=== PATIENT | female | born 1935 ===

== ENCOUNTER 2018-07-11 16:20 | Inpatient (IN) | payer MEDICARE, BC ==
[2018-07-11 16:47] VITALS: BMI 25.6
[2018-07-11] MEDS ORDERED: SUMAtriptan Succinate 50 MG TAB PO PRN (17:27)
--- NOTE | 2018-07-11 17:44 | HP ---
She is a [facility] new admit, so I do not have a medical record number yet. CHIEF COMPLAINT: Status post right knee replacement for physical therapy. BRIEF HISTORY: This is a very pleasant 82-year-old female, who underwent elective right total knee replacement by Dr. Vazquez. She has done well postoperatively and was felt to be a candidate for inpatient rehabilitation, so she was transferred here to [place]. Currently, the patient is resting in bed and denies any complaints. She denies any chest pain or shortness of breath. She denies any fever or chills. No family at bedside. PAST MEDICAL HISTORY: 1. Gastroesophageal reflux disease. 2. Osteoarthritis. 3. Lumbar radiculopathy, status post laminectomy. 4. History of breast cancer, on Arimidex and chronic kidney disease stage 2. PAST SURGICAL HISTORY: 1. Lumbar laminectomy. 2. 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 ALLERGIES: NO KNOWN DRUG ALLERGIES. FAMILY HISTORY: Parkinson's in her brother. PSYCHOSOCIAL HISTORY: Denies any tobacco, alcohol, or recreational drug use. REVIEW OF SYSTEMS: CARDIOVASCULAR SYSTEM: Denies any chest pain, shortness of breath, palpitations, PND, orthopnea, or pedal edema. RESPIRATORY: Denies any chronic cough, expectoration, or pleuritic type chest pain. GASTROINTESTINAL: Denies any nausea, vomiting, diarrhea, constipation, hematemesis, melena, or hematochezia. GENITOURINARY: Denies any frequency, urgency, dysuria, or hematuria. CENTRAL NERVOUS SYSTEM: No focal numbness, weakness, or fainting spells. HEENT: No difficulty speech, vision, hearing, or swallowing. PHYSICAL EXAMINATION: GENERAL: A very pleasant 82-year-old female, who is resting comfortably in bed, in no apparent distress. She responds appropriate to questions. She is alert, awake, and oriented x3. No family at bedside. VITAL SIGNS: She is afebrile. Heart rate 65, respirations 18, oxygen saturation 93%, and blood pressure is 119/80. HEENT: Normocephalic and atraumatic. Pupils are equal and reactive to light and accommodation. NECK: No JVD, thyromegaly, cervical lymphadenopathy, or throat exudates. No carotid bruits. CARDIOVASCULAR: S1 and S2 plus. Rate and rhythm regular. RESPIRATORY: Normal vesicular breath sounds heard in all lung bernstein. ABDOMEN: Soft and nontender. Bowel sounds heard in all quadrants. EXTREMITIES: Without cyanosis or clubbing. Trace right leg edema. Right knee incision with dressing. CENTRAL NERVOUS SYSTEM: Awake and responsive. Cranial nerves 2 through 12 grossly intact. Motor system examination shows generalized weakness mainly due to right knee replacement. LABORATORY VALUES: Pending. IMPRESSION: 1. Osteoarthritis, status post elective right total knee replacement. 2. Gastroesophageal reflux disease. 3. Osteoarthritis. 4. Chronic kidney disease, stage 2. 5. History of lumbar radiculopathy, status post laminectomy. 6. History of right breast cancer, currently on Arimidex. PLAN: 1. Continue current medications. 2. Nutritional support. 3. Incision care. 4. Orthopedic precautions. 5. DVT prophylaxis with aspirin 81 mg b.i.d. 6. Decubitus precaution. 7. Stress ulcer prophylaxis. 8. Consult physical therapy, eval and treat. 9. Routine laboratory values in the morning. 10. Discussed with the patient and nursing in detail, and all questions were answered. Job ID: [id number]
[2018-07-11] MEDS: Aspirin Chewable 81 MG TAB PO SCH (20:47)
[2018-07-11] MEDS: Fluticasone Propionate Nasal Spray 16 gm Bottle NASAL SCH (20:47)
[2018-07-11] MEDS: traMADol HCl 50 MG TAB PO PRN (20:47)
[2018-07-11] MEDS: Anastrozole 1 MG TAB PO SCH (20:52)
[2018-07-12] MEDS: Acetaminophen 500 MG TAB PO PRN ×4 (00:58→20:54)
[2018-07-12] MEDS: traMADol HCl 50 MG TAB PO PRN ×4 (00:59→20:55)
[2018-07-12] MEDS: Melatonin 3 MG TAB PO PRN ×2 (01:01→23:32)
[2018-07-12 05:09] LABS: #Eosinphils 0.3 thou/uL (0.0-0.7); #Lymphocytes 1.2 thou/uL (1.20-3.40); #Monocytes 0.6 thou/uL (0.11-0.59); #Neutrophils 4.1 thou/uL (1.40-6.50); %Basophils 0.7 % (0.0-1.0); %Eosinophils 5.2 % (0.0-10.0); %Lymphocytes 19.6 % (21.0-51.0); %Monocytes 10.1 % (0.0-10.0); %Neutrophils 64.4 % (42.0-75.0); Hemoglobin 9.9 g/dL (12.0-16.0); Mean Corpuscular Hemoglobin 30.9 pg (27.0-31.0); Mean Corpuscular Volume 96.5 fL (78.0-98.0); Platelet Count 254 thou/uL (130-400); RBC Distribution Width 13.1 % (11.5-14.5); White Blood Cell (WBC) Count 6.3 thou/uL (4.8-10.8)
[2018-07-12 05:27] LABS: Anion Gap 12 mmol/L (10-20); BUN (Urea Nitrogen) 20 mg/dL (9.8-20.1); Calc. Creatinine Clearance 59 mL/min (70-130); Calcium 9.7 mg/dL (7.8-10.44); Carbon Dioxide 27 mmol/L (23-31); Chloride 100 mmol/L (98-107); Estimated GFR-MDRD 69; Glucose 101 mg/dL (83-110); Potassium 4.4 mmol/L (3.5-5.1); Sodium 135 mmol/L (136-145)
[2018-07-12] MEDS: Citalopram 20 MG TAB PO SCH (09:06)
[2018-07-12] MEDS: Oxybutynin 5 MG TAB PO SCH (09:07)
[2018-07-12] MEDS: Polyethylene Glycol 3350 17 GM Packet PO SCH (09:07)
[2018-07-12] MEDS: Fluticasone Propionate Nasal Spray 16 gm Bottle NASAL SCH ×2 (09:07→20:54)
[2018-07-12] MEDS ORDERED: Aspirin Chewable 81 MG TAB ONE (09:46)
[2018-07-12] MEDS: Aspirin Chewable 81 MG TAB PO SCH ×2 (09:51→20:54)
[2018-07-12] MEDS: Anastrozole 1 MG TAB PO SCH (20:54)
[2018-07-12] MEDS: Meloxicam 7.5 MG TAB PO PRN (22:48)
[2018-07-13] MEDS: Acetaminophen 500 MG TAB PO PRN ×3 (08:41→21:08)
[2018-07-13] MEDS: Aspirin Chewable 81 MG TAB PO SCH ×2 (08:41→19:51)
[2018-07-13] MEDS: Citalopram 20 MG TAB PO SCH (08:41)
[2018-07-13] MEDS: Oxybutynin 5 MG TAB PO SCH (08:42)
[2018-07-13] MEDS: Fluticasone Propionate Nasal Spray 16 gm Bottle NASAL SCH ×2 (08:42→19:51)
[2018-07-13] MEDS: Polyethylene Glycol 3350 17 GM Packet PO SCH (08:42)
[2018-07-13] MEDS: traMADol HCl 50 MG TAB PO PRN ×3 (08:42→21:07)
--- NOTE | 2018-07-13 13:54 | PRG ---
DATE OF SERVICE: 07/13/2018 SUBJECTIVE: Ms. Lyon is doing well. Denies any complaints. Resting comfortably, very happy with her progress. Pain is well controlled. Bowel and bladder are working well. No family at bedside. OBJECTIVE: VITAL SIGNS: She is afebrile, heart rate is 83, respirations 18, oxygen saturation 96% on room air, blood pressure 143/74. CARDIOVASCULAR SYSTEM: S1 and S2 plus. RESPIRATORY SYSTEM: Normal vesicular breath sounds. ABDOMEN: Soft, nontender. Bowel sounds heard in all quadrants. EXTREMITIES: Without cyanosis or clubbing. Peripheral pulses are palpable. Knee incision with dressing. Trace edema. LABORATORY DATA: White count is 6.3, H and H are 9.9 and 30.9. Sodium 135, potassium 4.4, BUN and creatinine are 20 and 0.8. IMPRESSION: 1. Osteoarthritis, status post right total knee replacement. 2. Gastroesophageal reflux disease. 3. History of lumbar radiculopathy, status post laminectomy. 4. History of breast cancer, on Arimidex. 5. Chronic kidney disease, stage II. PLAN: 1. Continue current medications. 2. Pain control. 3. Physical therapy. 4. DVT and stress ulcer prophylaxis. 5. Decubitus precautions. 6. Routine laboratory values. 7. Discussed with the patient in detail and all questions answered. 8. Renal functions normal at present. We will continue to monitor closely. Job ID: [id number]
[2018-07-13] MEDS: Anastrozole 1 MG TAB PO SCH (19:51)
[2018-07-14] MEDS: Meloxicam 7.5 MG TAB PO PRN (00:38)
[2018-07-14] MEDS: Melatonin 3 MG TAB PO PRN ×2 (00:38→21:20)
[2018-07-14] MEDS: Acetaminophen 500 MG TAB PO PRN (04:05)
[2018-07-14] MEDS: traMADol HCl 50 MG TAB PO PRN ×3 (04:05→21:16)
[2018-07-14] MEDS: Polyethylene Glycol 3350 17 GM Packet PO SCH (09:00)
[2018-07-14] MEDS: HYDROcodone/Acetaminophen 5/325 mg Tablet PO PRN ×2 (09:01→17:47)
[2018-07-14] MEDS: Fluticasone Propionate Nasal Spray 16 gm Bottle NASAL SCH ×2 (09:01→21:14)
[2018-07-14] MEDS: Aspirin Chewable 81 MG TAB PO SCH ×2 (09:01→21:14)
[2018-07-14] MEDS: Oxybutynin 5 MG TAB PO SCH (09:01)
[2018-07-14] MEDS: Citalopram 20 MG TAB PO SCH (09:01)
--- NOTE | 2018-07-14 14:01 | PRG ---
DATE OF SERVICE: 07/14/2018 SUBJECTIVE: Ms. Lyon is doing well except she was having some significant pain at night, so [place] 5/325 q.6h p.r.n. was ordered for breakthrough pain. She is doing well otherwise. She denies any concerns or questions. She is happy with her progress. No family at bedside. No GI or symptoms. OBJECTIVE: VITAL SIGNS: She is afebrile. Heart rate 78, respirations 18, oxygen saturation 97% on room air, blood pressure 134/82. CARDIOVASCULAR: S1, S2 plus. RESPIRATORY SYSTEM: Normal vesicular breath sounds. ABDOMEN: Soft, nontender. Bowel sounds heard in all quadrants. EXTREMITIES: Without cyanosis or clubbing. A knee incision with dressing. Trace edema. IMPRESSION: 1. Osteoarthritis, status post right total knee replacement. 2. Gastroesophageal reflux disease. 3. History of breast cancer, on Arimidex. 4. History of chronic kidney disease, stage 2. Currently, renal functions are normal. PLAN: 1. Continue nutritional support. 2. Continue current medications, but add the [place] 5/325 for breakthrough pain. 3. Bowel regimen. 4. DVT and stress ulcer prophylaxis. 5. Decubitus precautions. 6. Incision care. 7. Orthopedic precautions. 8. Physical therapy. 9. Routine laboratory values. 10. Discussed with the patient in detail and all questions answered. 11. Routine laboratory values. Job ID: [id number]
[2018-07-14] MEDS: Anastrozole 1 MG TAB PO SCH (21:14)
[2018-07-15] MEDS: Aspirin Chewable 81 MG TAB PO SCH ×2 (08:39→21:24)
[2018-07-15] MEDS: Oxybutynin 5 MG TAB PO SCH (08:40)
[2018-07-15] MEDS: Polyethylene Glycol 3350 17 GM Packet PO SCH (08:40)
[2018-07-15] MEDS: Citalopram 20 MG TAB PO SCH (08:40)
[2018-07-15] MEDS: HYDROcodone/Acetaminophen 5/325 mg Tablet PO PRN ×2 (08:41→16:29)
[2018-07-15] MEDS: Fluticasone Propionate Nasal Spray 16 gm Bottle NASAL SCH ×2 (08:46→21:24)
--- NOTE | 2018-07-15 12:50 | PRG ---
DATE OF SERVICE: 07/15/2018 SUBJECTIVE: Ms. Lyon is doing well. Denies any complaints. Resting comfortably, slowly improving with therapy, having occasional episodes of frustration with her perceived lack of improvement. OBJECTIVE: VITAL SIGNS: She is afebrile. Heart rate 91; respirations 18; oxygen saturation 90% on room air, on recheck, it was 94%; blood pressure 152/86. CARDIOVASCULAR: S1, S2 plus. RESPIRATORY: Normal vesicular breath sounds. ABDOMEN: Soft, nontender. Bowel sounds heard in all quadrants. EXTREMITIES: Without cyanosis or clubbing. Right knee incision with dressing. Trace edema. CENTRAL NERVOUS SYSTEM: A and O x3. Cranial nerves 2 through 12 intact. IMPRESSION: 1. Osteoarthritis, status post right total knee replacement. 2. Gastroesophageal reflux disease. 3. History of breast cancer, on Arimidex. 4. Improving deconditioning. PLAN: 1. Continue current medications. 2. Two nutritional support. 3. DVT and stress ulcer prophylaxis. 4. Decubitus precautions. 5. Incision care and orthopedic precautions. 6. Continue PT, OT. 7. Routine laboratory values. 8. Titrate Emery. 9. Bowel regimen. 10. Discussed with the patient and nursing in detail, and all questions answered. Job ID: [id number]
[2018-07-15] MEDS: traMADol HCl 50 MG TAB PO PRN (18:30)
[2018-07-15] MEDS: Anastrozole 1 MG TAB PO SCH (21:24)
[2018-07-15] MEDS: Melatonin 3 MG TAB PO PRN (21:24)
[2018-07-16] MEDS: HYDROcodone/Acetaminophen 5/325 mg Tablet PO PRN ×4 (00:22→21:24)
[2018-07-16] MEDS: Oxybutynin 5 MG TAB PO SCH (08:43)
[2018-07-16] MEDS: Aspirin Chewable 81 MG TAB PO SCH ×2 (08:43→21:23)
[2018-07-16] MEDS: Citalopram 20 MG TAB PO SCH (08:43)
[2018-07-16] MEDS: Fluticasone Propionate Nasal Spray 16 gm Bottle NASAL SCH ×2 (08:43→21:23)
[2018-07-16] MEDS: Polyethylene Glycol 3350 17 GM Packet PO SCH (08:44)
[2018-07-16] MEDS: Meloxicam 7.5 MG TAB PO PRN (11:21)
--- NOTE | 2018-07-16 14:09 | PRG ---
DATE OF SERVICE: 07/16/2018 SUBJECTIVE: Ms. Lyon states that her pain is not under control. She apparently has a spinal stimulator, but needs a unit that needs to be hooked up to it and nursing have contacted the [employer] and they are suppose to ship it here. I will also increase her hydrocodone to 10/325 q.6 p.r.n. and see if that helps with the pain. No other concerns or questions. OBJECTIVE: VITAL SIGNS: She is afebrile, heart rate 77, respirations 16, oxygen saturation 97% on room air, blood pressure 110/66. CARDIOVASCULAR SYSTEM: S1-S2 plus. RESPIRATORY SYSTEM: Normal vesicular breath sounds. ABDOMEN: Soft, nontender. Bowel sounds heard in all quadrants. EXTREMITIES: Without cyanosis or clubbing. Right knee incision with dressing. CENTRAL NERVOUS SYSTEM: A and O x3. Cranial nerves 2 through 12 intact. Improving generalized weakness. IMPRESSION: 1. Osteoarthritis, status post right total knee replacement. 2. History of chronic lumbar pain with placement of spinal stimulator. 3. Gastroesophageal reflux disease. 4. History of breast cancer. 5. Improving deconditioning. PLAN: 1. Change [place] to 10/325 q.6 p.r.n. 2. Continue tramadol q.4 p.r.n. 3. Await her getting the unit to get her spinal stimulator hooked up. 4. Nutritional support. 5. DVT and stress ulcer prophylaxis. 6. Decubitus precaution. 7. Incision care. 8. Orthopedic precautions. 9. Routine laboratory values. 10. Discussed with the patient in detail and all questions answered. Job ID: [id number]
[2018-07-16] MEDS: Melatonin 3 MG TAB PO PRN (21:24)
[2018-07-16] MEDS: Anastrozole 1 MG TAB PO SCH (21:24)
[2018-07-17] MEDS: HYDROcodone/Acetaminophen 5/325 mg Tablet PO PRN ×4 (04:08→23:02)
[2018-07-17] MEDS: Aspirin Chewable 81 MG TAB PO SCH ×2 (09:03→20:47)
[2018-07-17] MEDS: Citalopram 20 MG TAB PO SCH (09:03)
[2018-07-17] MEDS: Fluticasone Propionate Nasal Spray 16 gm Bottle NASAL SCH ×2 (09:03→20:51)
[2018-07-17] MEDS: Oxybutynin 5 MG TAB PO SCH (09:03)
[2018-07-17] MEDS: Polyethylene Glycol 3350 17 GM Packet PO SCH (09:04)
--- NOTE | 2018-07-17 10:32 | PRG ---
DATE OF SERVICE: 07/17/2018 SUBJECTIVE: Ms. Lyon is doing well except for pain in her right knee and her back. The increase in the hydrocodone is helping some, but it is not relieving the pain. She is not taking her tramadol and I advised her to take the tramadol in between and see if that helps. She is also waiting on the control unit for her spinal stimulator, so she can start using it for her back. No fever or chills. No chest pain or shortness of breath. No other concerns or questions. She is also wondering, if her son from [place] can participate in case conference and I explained to her that it should not be a problem and I have informed the . OBJECTIVE: VITAL SIGNS: She is afebrile, heart rate 81, respirations 18, oxygen saturation 98% on room air, blood pressure 153/87. CARDIOVASCULAR SYSTEM: S1-S2 plus. RESPIRATORY SYSTEM: Normal vesicular breath sounds. ABDOMEN: Soft, nontender. Bowel sounds heard in all quadrants. EXTREMITIES: Without cyanosis or clubbing. Trace edema, right leg. Right knee incision with dressing. CENTRAL NERVOUS SYSTEM: A and O x3. Cranial nerves 2 through 12 intact. Some improving weakness. IMPRESSION: 1. Osteoarthritis, status post right total knee replacement. 2. Chronic low back pain, status post placement of spinal stimulator. 3. History of breast cancer. 4. Gastroesophageal reflux disease. 5. Improving deconditioning. PLAN: 1. Take tramadol for breakthrough pain in between her hydrocodone. 2. Await control unit for her spinal stimulator. 3. Nutritional support. 4. Incision care. 5. Orthopedic precautions. 6. Routine laboratory values. 7. Continue physical therapy. 8. Discussed with the patient and nursing in detail and all questions answered. Job ID: [id number]
[2018-07-17] MEDS: traMADol HCl 50 MG TAB PO PRN (14:30)
[2018-07-17] MEDS ORDERED: Ondansetron ODT 4 MG TAB PO PRN (20:37)
[2018-07-17] MEDS: Anastrozole 1 MG TAB PO SCH (20:47)
[2018-07-17] MEDS: Melatonin 3 MG TAB PO PRN (23:04)
[2018-07-18] MEDS: HYDROcodone/Acetaminophen 5/325 mg Tablet PO PRN ×3 (04:50→20:37)
[2018-07-18] MEDS: Polyethylene Glycol 3350 17 GM Packet PO SCH (08:38)
[2018-07-18] MEDS: Oxybutynin 5 MG TAB PO SCH (08:39)
[2018-07-18] MEDS: traMADol HCl 50 MG TAB PO PRN ×2 (08:39→15:24)
[2018-07-18] MEDS: Citalopram 20 MG TAB PO SCH (08:39)
[2018-07-18] MEDS: Aspirin Chewable 81 MG TAB PO SCH ×2 (08:39→20:37)
[2018-07-18] MEDS: Acetaminophen 500 MG TAB PO PRN ×2 (08:40→15:27)
[2018-07-18] MEDS: Fluticasone Propionate Nasal Spray 16 gm Bottle NASAL SCH ×2 (08:44→20:37)
[2018-07-18] MEDS: Anastrozole 1 MG TAB PO SCH (20:36)
[2018-07-18] MEDS: Melatonin 3 MG TAB PO PRN (20:37)
[2018-07-19] MEDS: traMADol HCl 50 MG TAB PO PRN ×2 (03:20→14:17)
[2018-07-19] MEDS: Acetaminophen 500 MG TAB PO PRN (03:21)
[2018-07-19] MEDS: HYDROcodone/Acetaminophen 5/325 mg Tablet PO PRN ×3 (08:36→20:40)
[2018-07-19] MEDS: Oxybutynin 5 MG TAB PO SCH (08:39)
[2018-07-19] MEDS: Aspirin Chewable 81 MG TAB PO SCH ×2 (08:39→20:39)
[2018-07-19] MEDS: Polyethylene Glycol 3350 17 GM Packet PO SCH (08:40)
[2018-07-19] MEDS: Citalopram 20 MG TAB PO SCH (08:40)
[2018-07-19] MEDS: Fluticasone Propionate Nasal Spray 16 gm Bottle NASAL SCH ×2 (08:41→20:39)
--- NOTE | 2018-07-19 11:01 | PRG ---
DATE OF SERVICE: 07/18/2018 SUBJECTIVE: The patient is resting well tonight, but is still complaining of pain in her knee, that could really be controlled by pain medication. OBJECTIVE: VITAL SIGNS: Showed to have blood pressure of 123/69, temperature is 98, pulse 89, respirations 18, O2 saturations 96% on room air. LUNGS: Clear. CARDIAC: Showed regular rhythm. EXTREMITIES: Right knee incision healing well. ASSESSMENT: 1. Stable status post right total knee. 2. Chronic low back pain, status post spinal stimulator. 3. Deconditioning, improving. PLAN: 1. Continue to take tramadol and hydrocodone until spinal stimulator function. 2. Continue PT, OT. 3. Continue to monitor for infection. Job ID: [id number]
--- NOTE | 2018-07-19 19:30 | PRG ---
DATE OF SERVICE: 07/19/2018 SUBJECTIVE: The patient is up, moving in her room, and working a crossword puzzle, but states that her right knee has had increased pain over the last 24 hours. She has not fallen or twisted her knee. She still does not have her stimulator working, but states this is not what is causing her knee pain. She is taking the maximum dose of hydrocodone and p.r.n. tramadol in between. OBJECTIVE: EXTREMITIES: Show that her right knee appears to be healed well with minimal erythema and swelling and good range of motion. VITAL SIGNS: Show blood pressure 115/54, temperature is 98, pulse 74, respirations 19, O2 saturations 100% on room air. LUNGS: Clear. CARDIAC: Showed regular rhythm. ASSESSMENT: 1. Increased knee pain, possibly due to decreased pain tolerance from receptor overload, chronic pain medicine. 2. Deconditioning, improving. 3. Right total knee appears to be healing well. 4. Chronic low back pain, stable, but not using spinal stimulator. PLAN: 1. Arrange for appointment with Dr. Mosley, her pain physician this week as she feels she is being discharged this week. 2. Continue PT and OT. 3. Continue to monitor for infection. Job ID: [id number]
[2018-07-19] MEDS: Anastrozole 1 MG TAB PO SCH (20:39)
[2018-07-19] MEDS: Melatonin 3 MG TAB PO PRN (20:40)
[2018-07-20] MEDS: HYDROcodone/Acetaminophen 5/325 mg Tablet PO PRN ×3 (08:30→21:29)
[2018-07-20] MEDS: Aspirin Chewable 81 MG TAB PO SCH ×2 (08:32→21:29)
[2018-07-20] MEDS: Citalopram 20 MG TAB PO SCH (08:32)
[2018-07-20] MEDS: Fluticasone Propionate Nasal Spray 16 gm Bottle NASAL SCH ×2 (08:32→21:28)
[2018-07-20] MEDS: Polyethylene Glycol 3350 17 GM Packet PO SCH (08:33)
[2018-07-20] MEDS: Oxybutynin 5 MG TAB PO SCH (08:33)
--- NOTE | 2018-07-20 09:47 | PRG ---
DATE OF SERVICE: 07/20/2018 SUBJECTIVE: Ms. Lyon states that she is in a lot of pain. Her pain is not controlled even on max doses of hydrocodone as well as tramadol and meloxicam. She also has chronic back pain and has a spinal stimulator. The charge circuit came in, but she is not sure how to set it up. She apparently sees Dr. Lyon for pain management. Plan is to try to get her scheduled to see Dr. Lyon and see if her medication regimen can be optimized. OBJECTIVE: VITAL SIGNS: She is afebrile. Heart rate 84, respirations 18, oxygen saturation 96% on room air, blood pressure 117/72. CARDIOVASCULAR SYSTEM: S1-S2 plus. RESPIRATORY SYSTEM: Normal vesicular breath sounds. ABDOMEN: Soft, nontender. Bowel sounds heard in all quadrants. EXTREMITIES: Without cyanosis or clubbing. Right knee incision with dressing. IMPRESSION: 1. Osteoarthritis, status post right total knee replacement. 2. Chronic low back pain. 3. Gastroesophageal reflux disease. 4. History of breast cancer, on Arimidex. PLAN: 1. Continue current medications. 2. Try to schedule appointment with Dr. Lyon, her pain management doctor at [facility]. 3. Nutritional support. 4. DVT and stress ulcer prophylaxis. 5. Decubitus precautions. 6. Incision care. 7. Orthopedic precautions. 8. Routine laboratory values. 9. Discussed with the patient in detail and all questions answered. Job ID: [id number]
[2018-07-20] MEDS: Melatonin 3 MG TAB PO PRN (21:29)
[2018-07-20] MEDS: Anastrozole 1 MG TAB PO SCH (21:29)
[2018-07-21] MEDS: Aspirin Chewable 81 MG TAB PO SCH ×2 (08:54→21:46)
[2018-07-21] MEDS: HYDROcodone/Acetaminophen 5/325 mg Tablet PO PRN ×3 (08:55→21:46)
[2018-07-21] MEDS: Oxybutynin 5 MG TAB PO SCH (08:55)
[2018-07-21] MEDS: Fluticasone Propionate Nasal Spray 16 gm Bottle NASAL SCH ×2 (08:55→21:46)
[2018-07-21] MEDS: Polyethylene Glycol 3350 17 GM Packet PO SCH (08:55)
[2018-07-21] MEDS: Citalopram 20 MG TAB PO SCH (08:55)
--- NOTE | 2018-07-21 14:17 | PRG ---
DATE OF SERVICE: 07/21/2018 SUBJECTIVE: Ms. Lyon is doing well. She is ambulating in the hallways with therapy with her walker. Anticipated discharge date is . She has an appointment with her pain doctor on . She states she does not need any prescription. She has a prescription for pain medicine from Dr. Vazquez. No family at bedside. Discussed with nursing and therapy staff. OBJECTIVE: VITAL SIGNS: She is afebrile. Heart rate 84, respirations 18, oxygen saturation 97% on room air, and blood pressure 119/74. CARDIOVASCULAR SYSTEM: S1 and S2 plus. RESPIRATORY SYSTEM: Normal vesicular breath sounds. ABDOMEN: Soft and nontender. Bowel sounds heard in all quadrants. EXTREMITIES: Without cyanosis or clubbing. Trace edema right leg. Right knee incision with dressing. CENTRAL NERVOUS SYSTEM: AAO x3. Cranial nerves 2 through 12 intact. IMPRESSION: 1. Osteoarthritis, status post right total knee replacement. 2. Chronic low back pain with presence of spinal cord stimulator. 3. Gastroesophageal reflux disease. 4. History of breast cancer, on Arimidex. 5. Anemia, likely due to acute blood loss. PLAN: 1. Continue current medications. 2. Nutritional support. 3. Discharge home on . 4. Outpatient followup with primary care physician and specialist. 5. Home health will be arranged and managed by her PCP. 6. Continue therapy. 7. DVT and stress ulcer prophylaxis. 8. Discussed with the patient and staff in detail. All questions answered. Job ID: [id number]
[2018-07-21] MEDS: Anastrozole 1 MG TAB PO SCH (21:46)
[2018-07-21] MEDS: Melatonin 3 MG TAB PO PRN (21:46)
[2018-07-22] MEDS: Acetaminophen 500 MG TAB PO PRN ×2 (06:18→13:21)
[2018-07-22] MEDS: Polyethylene Glycol 3350 17 GM Packet PO SCH (09:32)
[2018-07-22] MEDS: Citalopram 20 MG TAB PO SCH (09:33)
[2018-07-22] MEDS: Aspirin Chewable 81 MG TAB PO SCH ×2 (09:33→20:40)
[2018-07-22] MEDS: Fluticasone Propionate Nasal Spray 16 gm Bottle NASAL SCH ×2 (09:34→20:40)
[2018-07-22] MEDS: Oxybutynin 5 MG TAB PO SCH (10:33)
[2018-07-22] MEDS: traMADol HCl 50 MG TAB PO PRN (13:22)
--- NOTE | 2018-07-22 14:06 | PRG ---
DATE OF SERVICE: 07/22/2018 SUBJECTIVE: Ms. Lyon is doing well. Denies any complaints. Up in her bed eating lunch. She is improving with therapy. She has been cleared for discharge tomorrow. She is going to go and see her pain management doctor in the morning, come back here, and then be discharged. No concerns or questions. Discussed with nursing. She states she does not need any refills or any prescriptions. OBJECTIVE: VITAL SIGNS: She is afebrile, heart rate 85, respirations 18, oxygen saturation 96% on room air, blood pressure 131/87. CARDIOVASCULAR SYSTEM: S1 and S2 plus. RESPIRATORY SYSTEM: Normal vesicular breath sounds. ABDOMEN: Soft, nontender. Bowel sounds heard in all quadrants. EXTREMITIES: Without cyanosis or clubbing. Right knee incision with dressing. Trace edema. CENTRAL NERVOUS SYSTEM: AAO x3. Cranial nerves 2 through 12 intact. Improving, deconditioning, and weakness. IMPRESSION: 1. Osteoarthritis, status post right total knee replacement. 2. Lumbar spinal stenosis with chronic back pain with requiring presence of spinal cord stimulator. 3. Gastroesophageal reflux disease. 4. History of breast cancer, on Arimidex. PLAN: 1. Continue current medications. 2. Nutritional support. 3. Orthopedic precautions. 4. Incision care. 5. Discharge planning. 6. Outpatient followup with primary care physician and surgeons. 7. She has appointment with Pain Management tomorrow. 8. The patient was advised to call us with any questions or concerns. I think she already has a walker. Job ID: [id number]
[2018-07-22] MEDS: HYDROcodone/Acetaminophen 5/325 mg Tablet PO PRN (20:39)
[2018-07-22] MEDS: Anastrozole 1 MG TAB PO SCH (20:40)
[2018-07-22] MEDS: Melatonin 3 MG TAB PO PRN (20:40)
[2018-07-23] MEDS: HYDROcodone/Acetaminophen 5/325 mg Tablet PO PRN (06:02)
[2018-07-23] MEDS: Polyethylene Glycol 3350 17 GM Packet PO SCH (11:12)
[2018-07-23] MEDS: Oxybutynin 5 MG TAB PO SCH (11:13)
[2018-07-23] MEDS: Citalopram 20 MG TAB PO SCH (11:13)
[2018-07-23] MEDS: Aspirin Chewable 81 MG TAB PO SCH (11:13)
[2018-07-23] MEDS: Fluticasone Propionate Nasal Spray 16 gm Bottle NASAL SCH (11:13)
[2018-07-23 12:07] VITALS: BP 167/98; TEMP 98.2
--- NOTE | 2018-07-23 14:25 | DIS ---
DATE OF ADMISSION: 07/11/2018 DATE OF DISCHARGE: 07/23/2018 PRINCIPAL DIAGNOSES: 1. Osteoarthritis, status post right total knee replacement. 2. Chronic low back pain with presence of a spinal cord stimulator. 3. Gastroesophageal reflux disease. 4. History of breast cancer. COMPLICATIONS: None. ADVERSE REACTIONS: None. PROCEDURES: None. CONSULTATIONS: None. HOSPITAL COURSE: The patient was admitted on 07/11 after undergoing right total knee replacement for therapy. She has been doing well with therapy, but has been having significant pain and her tramadol was changed to hydrocodone and then from hydrocodone 5 mg, it was switched to 10 mg. She continued to have significant pain, so arrangements were made for her to see her pain doctor at [facility]. She also has improved enough from the therapy standpoint that she was deemed stable for discharge today, so she saw her pain management physician this morning and then was discharged home. She is to follow up on an outpatient basis with her orthopedic surgeon as well as her primary care physician. PHYSICAL EXAMINATION: VITAL SIGNS: On the day of discharge, she is afebrile, heart rate 86, respirations 18, oxygen saturation is 96% on room air, and blood pressure was slightly elevated at 167/98, but this was at 1045 hours this morning. I advised nursing to recheck it again and to call me if it was high before discharging her. CARDIOVASCULAR SYSTEM: S1 and S2 plus. RESPIRATORY SYSTEM: Normal vesicular breath sounds. ABDOMEN: Soft and nontender. Bowel sounds heard in all quadrants. EXTREMITIES: Without cyanosis or clubbing. Trace edema in right leg. Right knee incision is with dressing. CENTRAL NERVOUS SYSTEM: AAO x3. Cranial nerves 2 through 12 intact. Improving deconditioning. DISCHARGE MEDICATIONS: 1. Tylenol 1000 mg q.6 p.r.n. 2. Anastrozole 1 mg p.o. at bedtime. 3. Aspirin 81 mg p.o. b.i.d. for a total of one month from the date of surgery. 4. Vitamin D3 of 2000 units daily. 5. Celexa 20 mg daily. 6. Eletriptan 40 mg p.o. p.r.n. migraine headache. 7. Fluticasone nasal spray one spray to each nostril daily. 8. Melatonin 3 mg at bedtime. 9. Meloxicam 7.5 mg daily. 10. Prilosec 40 mg b.i.d. 11. Oxybutynin 5 mg daily. 12. MiraLAX 17 g in 8 ounces of water daily. 13. Tramadol 100 mg p.o. q.6 p.r.n. Again, she was advised to call us with any questions or concerns. Heart healthy diet. Activity restrictions per orthopedic surgeon. She stated that she did not need any refills. She has all her medications. Job ID: [id number]
== END 2018-07-23 12:11 | disposition home or self-care (01) | DRG 560 ==
LOC: NAV ACUTE 16:20
PROVIDERS: ADMIT Internal Medicine; ATTEND Internal Medicine
DX: Z47.1 Aftercare following joint replacement surgery (principal); D62 Acute posthemorrhagic anemia; K21.9 Gastro-esophageal reflux disease without esophagitis; N18.2 Chronic kidney disease, stage 2 (mild); R53.81 Other malaise; M48.061 Spinal stenosis, lumbar region without neurogenic claudication; G89.29 Other chronic pain; Z85.3 Personal history of malignant neoplasm of breast; Z98.890 Other specified postprocedural states
CPT/HCPCS: 36415; 80048; 85025; 87070; 87205; Q0162